=== PATIENT | male | born 1970 | race African-American/Black ===

== ENCOUNTER 2017-03-29 08:56 | Emergency (ER) | payer MEDICARE, OTHER ==
[~2017-03-29] VITALS: Ht 190.5 cm; Wt 80.0 kg
[~2017-03-29 08:56] MED LIST: AMLO-511 PO; ASPI-556 PO; CARV25 PO; CINA30 PO; FOLI1 PO; GUAIFCF5L PO; HYDR-3971 PO; PANT40TA PO; PROMVCC120 PO; SEVEC800 PO; SIMV-261 PO; VALS160T2 PO
[2017-03-29 09:17] LABS: GLUCOSE,POINT OF CARE 176 MG/DL (70-110)
[2017-03-29 09:48] LABS: CALCIUM, TOTAL 9.4 mg/dL (8.8-10.5); CREATININE 19.38 mg/dL (0.60-1.30); POTASSIUM 4.7 mmol/L (3.5-5.1)
[2017-03-29 10:35] VITALS: BP 168/99
== END 2017-03-29 11:02 | disposition home or self-care (01) ==
LOC: EMS 09:00
DX: E11.22 Type 2 diabetes mellitus with diabetic chronic kidney disease (principal); I12.0 Hypertensive chronic kidney disease with stage 5 chronic kidney disease or end stage renal disease; N18.6 End stage renal disease; M79.605 Pain in left leg; M79.604 Pain in right leg; J44.9 Chronic obstructive pulmonary disease, unspecified; G89.29 Other chronic pain; Z79.82 Long term (current) use of aspirin; Z99.2 Dependence on renal dialysis
CPT/HCPCS: 82962; 93005; 99285

== ENCOUNTER 2017-07-21 02:02 | Inpatient (IN) | payer MEDICARE, OTHER ==
[~2017-07-21] VITALS: Ht 190.5 cm; Wt 179.5 kg
[~2017-07-21 02:02] MED LIST changes: -AMLO-511 PO; -HYDR-3971 PO; -PROMVCC120 PO
[2017-07-21 02:44] LABS: BASOPHILS % (AUTO) 0.3 % (0.0-2.0); EOSINOPHILS % (AUTO) 2.2 % (1.0-6.0); HEMATOCRIT 28.9 % (41-53); HEMOGLOBIN 9.8 g/dL (13.5-17.5); LYMPHOCYTES # (AUTO) 0.9 K/uL (1.0-4.8); LYMPHOCYTES % (AUTO) 14.8 % (22.0-44.0); MEAN CORPUSCULAR HEMOGLOBIN 31.8 pg (26.0-34.0); MEAN CORPUSCULAR VOLUME 94 fL (80-100); MONOCYTES # (AUTO) 0.5 K/uL (0.1-1.0); MONOCYTES % (AUTO) 7.8 % (2.0-9.0); NEUTROPHILS # (AUTO) 4.6 K/uL (1.8-7.7); NEUTROPHILS % (AUTO) 74.9 % (40.0-70.0); PLATELET COUNT (AUTO) 217 K/uL (150-450); RED BLOOD CELL COUNT(AUTO) 3.09 MIL/uL (4.50-5.90); RED CELL DISTRIBUTION WIDTH 12.8 % (11.5-14.5)
[2017-07-21 03:08] LABS: ALBUMIN 3.9 g/dL (3.4-5.0); BILIRUBIN,TOTAL 0.5 mg/dL (0.1-1.0); CALCIUM, TOTAL 7.8 mg/dL (8.8-10.5); TOTAL PROTEIN, SERUM 7.4 g/dL (6.4-8.2)
[2017-07-21 03:20] LABS: CREATININE 17.42 mg/dL (0.60-1.30)
[2017-07-21] MEDS ORDERED: 0.9% SODIUM CHLORIDE 5 ML NEB SOLUTION NEB ONE (03:44)
[2017-07-21] MEDS ORDERED: 0.9% SODIUM CHLORIDE 10 ML SYRINGE IVP PRN ×2 (03:45→05:15)
[2017-07-21] MEDS ORDERED: ALBUTEROL SULFATE 5 MG/ML 20 ML NEB SOLN [BULK] NEB ONE (03:45)
[2017-07-21] MEDS ORDERED: CALCIUM CHLORIDE 100 MG/ML 10 ML SYRINGE IVP ONE (03:45)
[2017-07-21] MEDS ORDERED: INSULIN REGULAR, HUMAN 100 UNITS/ML IVP ONE (03:45)
[2017-07-21] MEDS ORDERED: ONDANSETRON HCL 4 MG/2 ML VIAL IVP PRN ×2 (03:45→05:15)
[2017-07-21] MEDS ORDERED: DEXTROSE 50%-WATER 25 GM/50 ML SYRINGE IVP ONE (03:45)
[2017-07-21] MEDS ORDERED: SODIUM BICARBONATE [ADULT] 8.4% 50 MEQ/50 ML SYRINGE IVP ONE ×2 (03:45→04:30)
[2017-07-21 04:26] LABS: CALCIUM, TOTAL 8.2 mg/dL (8.8-10.5); CREATININE 17.16 mg/dL (0.60-1.30)
[2017-07-21 04:32] LABS: POTASSIUM 8.9 mmol/L (3.5-5.1)
[2017-07-21 04:43] VITALS: BP 159/111
[2017-07-21] MEDS ORDERED: ALBUTEROL SULFATE 2.5 MG/0.5 ML NEB SOLUTION NEB PRN (05:15)
[2017-07-21] MEDS ORDERED: BISACODYL 10 MG RECTAL RECTAL SUPPOSITORY PR PRN (05:15)
[2017-07-21] MEDS ORDERED: IPRATROPIUM BROMIDE 0.5 MG/2.5 ML NEB SOLUTION NEB PRN (05:15)
[2017-07-21] MEDS ORDERED: GuaiFENesin/D-METHORPHAN/PHENYLEPH 5 ML LIQUID ORAL.SYG PO PRN (05:15)
[2017-07-21] MEDS ORDERED: ACETAMINOPHEN 325 MG TABLET PO PRN (05:15)
[2017-07-21] MEDS ORDERED: MAGNESIUM HYDROXIDE SUSPENSION 30 ML UDCUP PO PRN (05:15)
[2017-07-21] MEDS: HydrALAZINE HCL 20 MG/ML VIAL IVP PRN ×2 (05:16→10:15)
[2017-07-21 05:29] LABS: BASOPHILS # (AUTO) 0.03 K/uL (0.00-0.20); BASOPHILS % (AUTO) 0.4 % (0.0-2.0); EOSINOPHILS # (AUTO) 0.16 K/uL (0.00-0.70); EOSINOPHILS % (AUTO) 2.07 % (1.0-6.0); HEMATOCRIT 28.9 % (41-53); HEMOGLOBIN 9.8 g/dL (13.5-17.5); LYMPHOCYTES # (AUTO) 1.8 K/uL (1.0-4.8); LYMPHOCYTES % (AUTO) 23.3 % (22.0-44.0); MEAN CORPUSCULAR HEMOGLOBIN 31.9 pg (26.0-34.0); MEAN CORPUSCULAR HGB CONC 33.8 G/dL (31.0-37.0); MEAN CORPUSCULAR VOLUME 94 fL (80-100); MONOCYTES # (AUTO) 0.7 K/uL (0.1-1.0); MONOCYTES % (AUTO) 9.4 % (2.0-9.0); NEUTROPHILS % (AUTO) 64.8 % (40.0-70.0); PLATELET COUNT (AUTO) 246 K/uL (150-450); RED BLOOD CELL COUNT(AUTO) 3.06 MIL/uL (4.50-5.90); RED CELL DISTRIBUTION WIDTH 13.3 % (11.5-14.5)
[2017-07-21 05:44] LABS: ALBUMIN 3.8 g/dL (3.4-5.0); BILIRUBIN,TOTAL 0.6 mg/dL (0.1-1.0); CALCIUM, TOTAL 8.2 mg/dL (8.8-10.5); CREATININE 17.29 mg/dL (0.60-1.30); MAGNESIUM 3.2 mg/dL (1.80-2.40); TOTAL PROTEIN, SERUM 7.5 g/dL (6.4-8.2)
[2017-07-21 05:48] LABS: POTASSIUM 7.5 mmol/L (3.5-5.1)
[2017-07-21] MEDS ORDERED: SODIUM CHLORIDE 0.9% 2,000 ML IV ONE (05:55)
[2017-07-21 08:00] VITALS: BP 178/101
[2017-07-21] MEDS: SEVELAMER CARBONATE 800 MG TABLET PO SCH ×3 (10:04→18:08)
[2017-07-21] MEDS: CINACALCET HCL 30 MG TABLET PO SCH (10:05)
[2017-07-21] MEDS: ASPIRIN 81 MG EC TABLET PO SCH (10:05)
[2017-07-21] MEDS: FOLIC ACID 1 MG TABLET PO SCH (10:05)
[2017-07-21] MEDS: PANTOPRAZOLE SODIUM 40 MG DR TABLET PO SCH ×2 (10:06→20:00)
[2017-07-21] MEDS: HEPARIN SODIUM,PORCINE 5,000 UNITS/ML VIAL SQ SCH ×2 (10:06→20:02)
[2017-07-21] MEDS: CARVEDILOL 25 MG TABLET PO SCH ×2 (10:06→20:00)
[2017-07-21 11:28] LABS: CALCIUM, TOTAL 8.3 mg/dL (8.8-10.5); CREATININE 9.87 mg/dL (0.60-1.30); POTASSIUM 4.7 mmol/L (3.5-5.1)
[2017-07-21] MEDS: SIMVASTATIN 40 MG TABLET PO SCH (11:39)
[2017-07-21 12:00] VITALS: BP 141/79
[2017-07-21 14:38] VITALS: BP 143/89
[2017-07-21 15:34] LABS: GLUCOSE,POINT OF CARE 94 MG/DL (70-110)
[2017-07-21 19:26] VITALS: BP 143/86
[2017-07-21 23:30] VITALS: BP 149/79
[2017-07-22 05:43] VITALS: BP 140/74
[2017-07-22 06:25] LABS: CALCIUM, TOTAL 7.3 mg/dL (8.8-10.5); CREATININE 12.71 mg/dL (0.60-1.30); POTASSIUM 5.9 mmol/L (3.5-5.1)
[2017-07-22 07:04] LABS: BASOPHILS % (AUTO) 0.4 % (0.0-2.0); EOSINOPHILS % (AUTO) 2.9 % (1.0-6.0); HEMATOCRIT 27.9 % (41-53); HEMOGLOBIN 9.4 g/dL (13.5-17.5); LYMPHOCYTES # (AUTO) 1.2 K/uL (1.0-4.8); LYMPHOCYTES % (AUTO) 26.3 % (22.0-44.0); MEAN CORPUSCULAR HGB CONC 33.8 G/dL (31.0-37.0); MEAN CORPUSCULAR VOLUME 95 fL (80-100); MONOCYTES # (AUTO) 0.5 K/uL (0.1-1.0); MONOCYTES % (AUTO) 10.2 % (2.0-9.0); NEUTROPHILS # (AUTO) 2.8 K/uL (1.8-7.7); NEUTROPHILS % (AUTO) 60.2 % (40.0-70.0); PLATELET COUNT (AUTO) 199 K/uL (150-450); RED BLOOD CELL COUNT(AUTO) 2.94 MIL/uL (4.50-5.90)
[2017-07-22 07:50] VITALS: BP 142/79
[2017-07-22] MEDS: SEVELAMER CARBONATE 800 MG TABLET PO SCH ×2 (08:00→12:00)
[2017-07-22] MEDS: CINACALCET HCL 30 MG TABLET PO SCH (08:00)
[2017-07-22] MEDS: PANTOPRAZOLE SODIUM 40 MG DR TABLET PO SCH (09:00)
[2017-07-22] MEDS: CARVEDILOL 25 MG TABLET PO SCH (09:00)
[2017-07-22] MEDS: HEPARIN SODIUM,PORCINE 5,000 UNITS/ML VIAL SQ SCH (09:00)
[2017-07-22] MEDS: FOLIC ACID 1 MG TABLET PO SCH (09:00)
[2017-07-22] MEDS: ASPIRIN 81 MG EC TABLET PO SCH (09:00)
[2017-07-22] MEDS: SIMVASTATIN 40 MG TABLET PO SCH (09:00)
[2017-07-22] MEDS ORDERED: SODIUM CHLORIDE 0.9% 1,000 ML IV ONE (09:08)
[2017-07-22 12:08] VITALS: BP 179/97
== END 2017-07-22 17:50 | disposition home or self-care (01) | DRG 291 ==
LOC: EMS 02:04 → ICU 03:50 → 6N 13:57
PROVIDERS: ADMIT Internal Medicine; ATTEND Internal Medicine
DX: I13.2 Hypertensive heart and chronic kidney disease with heart failure and with stage 5 chronic kidney disease, or end stage renal disease (principal); I50.33 Acute on chronic diastolic (congestive) heart failure; E11.22 Type 2 diabetes mellitus with diabetic chronic kidney disease; N18.6 End stage renal disease; N25.81 Secondary hyperparathyroidism of renal origin; D63.1 Anemia in chronic kidney disease; E78.5 Hyperlipidemia, unspecified; E87.5 Hyperkalemia; I25.10 Atherosclerotic heart disease of native coronary artery without angina pectoris; J44.9 Chronic obstructive pulmonary disease, unspecified; Z59.0 Homelessness; Z87.891 Personal history of nicotine dependence; Z91.19 Patient's noncompliance with other medical treatment and regimen; Z99.2 Dependence on renal dialysis; K21.9 Gastro-esophageal reflux disease without esophagitis
CPT/HCPCS: 82962; 83735; 87081; 87340; 90935; 93005; 93306; 94640; 96374; 96375; 99291; J0360; J1644; J1815; J3490; J7030

== ENCOUNTER 2017-09-17 17:59 | Inpatient (IN) | payer MEDICARE, OTHER ==
[~2017-09-17] VITALS: Ht 190.5 cm; Wt 87.3 kg
[~2017-09-17 17:59] MED LIST changes: -GUAIFCF5L PO; -VALS160T2 PO
[2017-09-17] MEDS ORDERED: IPRATROPIUM BROMIDE 0.5 MG/2.5 ML NEB SOLUTION NEB ONE (23:45)
[2017-09-17] MEDS ORDERED: ALBUTEROL SULFATE 2.5 MG/0.5 ML NEB SOLUTION NEB ONE (23:45)
[2017-09-17 23:57] LABS: GLUCOSE,POINT OF CARE 144 MG/DL (70-110)
[2017-09-18] VITALS (7 sets, daily range): BP systolic 119–164; BP diastolic 72–98
[2017-09-18] LABS: BASOPHILS % (AUTO) 0.4 % (0.0-2.0); HEMATOCRIT 32.3 % (41-53); HEMOGLOBIN 10.8 g/dL (13.5-17.5); LYMPHOCYTES # (AUTO) 0.9 K/uL (1.0-4.8); LYMPHOCYTES % (AUTO) 11.3 % (22.0-44.0); MEAN CORPUSCULAR HEMOGLOBIN 31.8 pg (26.0-34.0); MEAN CORPUSCULAR HGB CONC 33.5 G/dL (31.0-37.0); MEAN CORPUSCULAR VOLUME 95 fL (80-100); MONOCYTES # (AUTO) 1.3 K/uL (0.1-1.0); MONOCYTES % (AUTO) 16.2 % (2.0-9.0); NEUTROPHILS # (AUTO) 5.5 K/uL (1.8-7.7); NEUTROPHILS % (AUTO) 71.1 % (40.0-70.0); PLATELET COUNT (AUTO) 229 K/uL (150-450); RED CELL DISTRIBUTION WIDTH 15.3 % (11.5-14.5)
[2017-09-18 00:17] LABS: INR 1.1 (0.9-1.1); PROTHROMBIN TIME 11.8 SEC (9.4-11.6)
[2017-09-18 00:23] LABS: LACTIC ACID 2.1 mmol/L (0.4-2.0)
[2017-09-18 00:39] LABS: ALBUMIN 3.7 g/dL (3.4-5.0); BILIRUBIN,TOTAL 0.5 mg/dL (0.1-1.0); CALCIUM, TOTAL 8.7 mg/dL (8.8-10.5); CKMB RELATIVE INDEX 3.1 % (0.0-4.0); CREATINE KINASE MB 6.6 ng/mL (0-5); CREATININE 19.82 mg/dL (0.60-1.30); TOTAL PROTEIN, SERUM 8.1 g/dL (6.4-8.2)
[2017-09-18 01:06] LABS: INFLUENZA TYPE A NEGATIVE FOR TYPE A (NEGATIVE); INFLUENZA TYPE B NEGATIVE FOR TYPE B (NEGATIVE)
[2017-09-18] MEDS ORDERED: 0.9% SODIUM CHLORIDE 10 ML SYRINGE IVP PRN ×2 (01:45→19:45)
[2017-09-18] MEDS ORDERED: ONDANSETRON HCL 4 MG/2 ML VIAL IVP PRN (01:45)
[2017-09-18] MEDS ORDERED: ACETAMINOPHEN 325 MG TABLET PO PRN ×2 (01:45→19:45)
[2017-09-18] MEDS: ALBUTEROL SULFATE 2.5 MG/0.5 ML NEB SOLUTION NEB SCH ×2 (03:19→11:22)
[2017-09-18] MEDS: IPRATROPIUM BROMIDE 0.5 MG/2.5 ML NEB SOLUTION NEB SCH ×2 (03:19→11:22)
[2017-09-18] MEDS: OxyCODONE HCL/ACETAMINOPHEN 5-325 MG TABLET PO PRN ×3 (06:10→21:08)
[2017-09-18 07:02] LABS: GLUCOSE,POINT OF CARE 95 MG/DL (70-110)
[2017-09-18] MEDS ORDERED: 0.9% SODIUM CHLORIDE 5 ML NEB SOLUTION NEB ONE (11:13)
[2017-09-18 11:33] LABS: GLUCOSE,POINT OF CARE 134 MG/DL (70-110)
[2017-09-18] MEDS ORDERED: SODIUM CHLORIDE 0.9% 2,000 ML IV ONE (12:56)
[2017-09-18] MEDS: VITAMIN B COMP/VIT C/FOLIC ACID CAPSULE PO SCH (17:57)
[2017-09-18] MEDS: AmLODIPine BESYLATE 5 MG TABLET PO SCH (17:57)
[2017-09-18] MEDS ORDERED: SEVELAMER CARBONATE 800 MG TABLET PO SCH (18:00)
[2017-09-18] MEDS ORDERED: MAGNESIUM HYDROXIDE SUSPENSION 30 ML UDCUP PO PRN (19:45)
[2017-09-18] MEDS: SIMVASTATIN 40 MG TABLET PO SCH (20:36)
[2017-09-18] MEDS: ASPIRIN 81 MG EC TABLET PO SCH (20:36)
[2017-09-18] MEDS: FOLIC ACID 1 MG TABLET PO SCH (20:36)
[2017-09-18] MEDS: DOCUSATE SODIUM 100 MG CAPSULE PO SCH (20:36)
[2017-09-18] MEDS: PANTOPRAZOLE SODIUM 40 MG/VIAL IVP SCH (20:37)
[2017-09-18] MEDS: CARVEDILOL 25 MG TABLET PO SCH (21:08)
[2017-09-18] MEDS ORDERED: ALBUTEROL SULFATE 2.5 MG/0.5 ML NEB SOLUTION NEB PRN (23:15)
[2017-09-18] MEDS ORDERED: IPRATROPIUM BROMIDE 0.5 MG/2.5 ML NEB SOLUTION NEB PRN (23:15)
[2017-09-18] MEDS: TEMAZEPAM 15 MG CAPSULE PO PRN (23:25)
[2017-09-19 04:13] VITALS: BP 143/72
[2017-09-19 07:00] VITALS: BP 140/66
[2017-09-19 07:36] LABS: CALCIUM, TOTAL 8.4 mg/dL (8.8-10.5); CREATININE 14.2 mg/dL (0.60-1.30); MAGNESIUM 2.3 mg/dL (1.80-2.40); POTASSIUM 4.4 mmol/L (3.5-5.1)
[2017-09-19 07:45] LABS: HEMATOCRIT 30.9 % (41-53); HEMOGLOBIN 10.4 g/dL (13.5-17.5); MEAN CORPUSCULAR HEMOGLOBIN 31.9 pg (26.0-34.0); MEAN CORPUSCULAR HGB CONC 33.8 G/dL (31.0-37.0); MEAN CORPUSCULAR VOLUME 94 fL (80-100); PLATELET COUNT (AUTO) 175 K/uL (150-450); RED BLOOD CELL COUNT(AUTO) 3.27 MIL/uL (4.50-5.90); RED CELL DISTRIBUTION WIDTH 15.6 % (11.5-14.5)
[2017-09-19] MEDS: CINACALCET HCL 30 MG TABLET PO SCH (08:00)
[2017-09-19] MEDS: SEVELAMER CARBONATE 800 MG TABLET PO SCH ×3 (08:00→18:19)
[2017-09-19] MEDS: CARVEDILOL 25 MG TABLET PO SCH ×2 (09:00→19:48)
[2017-09-19] MEDS: DOCUSATE SODIUM 100 MG CAPSULE PO SCH ×2 (09:00→19:48)
[2017-09-19] MEDS ORDERED: SODIUM CHLORIDE 0.9% 2,000 ML IV ONE (09:29)
[2017-09-19 10:50] VITALS: BP 135/80
[2017-09-19 11:07] LABS: BAND NEUTROPHILS % (MANUAL) 8 % (1-5); EOSINOPHILS % (MANUAL) 1 % (1-6); LYMPHOCYTES % (MANUAL) 39 % (22-44); MONOCYTES % (MANUAL) 2 % (2-9); SEGMENTED NEUTROPHILS % 50 % (40-70)
[2017-09-19] MEDS ORDERED: SODIUM CHLORIDE 0.9% 100 ML ONE (12:14)
[2017-09-19] MEDS: PANTOPRAZOLE SODIUM 40 MG/VIAL IVP SCH (14:26)
[2017-09-19] MEDS: FOLIC ACID 1 MG TABLET PO SCH (14:27)
[2017-09-19] MEDS: ASPIRIN 81 MG EC TABLET PO SCH (14:27)
[2017-09-19] MEDS: SIMVASTATIN 40 MG TABLET PO SCH (14:27)
[2017-09-19] MEDS: AmLODIPine BESYLATE 5 MG TABLET PO SCH (14:28)
[2017-09-19] MEDS: VITAMIN B COMP/VIT C/FOLIC ACID CAPSULE PO SCH (14:31)
[2017-09-19 14:44] VITALS: BP 157/81
[2017-09-19] MEDS: CeFAZolin 2 GM/DEXTROSE 50 ML IV SCH (15:42)
[2017-09-19] MEDS: OxyCODONE HCL/ACETAMINOPHEN 5-325 MG TABLET PO PRN (15:48)
[2017-09-19 19:15] VITALS: BP 148/88
[2017-09-19 23:53] VITALS: BP 149/71
[2017-09-20] VITALS (7 sets, daily range): BP systolic 124–143; BP diastolic 71–88
[2017-09-20] MEDS: TEMAZEPAM 15 MG CAPSULE PO PRN ×2 (00:41→23:21)
[2017-09-20 07:58] LABS: BASOPHILS # (AUTO) 0.02 K/uL (0.00-0.20); BASOPHILS % (AUTO) 0.4 % (0.0-2.0); EOSINOPHILS # (AUTO) 0.13 K/uL (0.00-0.70); EOSINOPHILS % (AUTO) 2.68 % (1.0-6.0); HEMATOCRIT 33.1 % (41-53); HEMOGLOBIN 10.8 g/dL (13.5-17.5); LYMPHOCYTES % (AUTO) 20.4 % (22.0-44.0); MEAN CORPUSCULAR HEMOGLOBIN 31.5 pg (26.0-34.0); MEAN CORPUSCULAR HGB CONC 32.5 G/dL (31.0-37.0); MEAN CORPUSCULAR VOLUME 97 fL (80-100); MONOCYTES # (AUTO) 0.9 K/uL (0.1-1.0); NEUTROPHILS # (AUTO) 2.9 K/uL (1.8-7.7); NEUTROPHILS % (AUTO) 58.5 % (40.0-70.0); PLATELET COUNT (AUTO) 181 K/uL (150-450); RED BLOOD CELL COUNT(AUTO) 3.42 MIL/uL (4.50-5.90)
[2017-09-20] MEDS: SEVELAMER CARBONATE 800 MG TABLET PO SCH ×3 (08:00→17:33)
[2017-09-20] MEDS: CINACALCET HCL 30 MG TABLET PO SCH (08:00)
[2017-09-20] MEDS: DOCUSATE SODIUM 100 MG CAPSULE PO SCH ×2 (08:28→21:13)
[2017-09-20] MEDS: PANTOPRAZOLE SODIUM 40 MG/VIAL IVP SCH (08:29)
[2017-09-20 08:45] LABS: CALCIUM, TOTAL 8.5 mg/dL (8.8-10.5); CREATININE 12.86 mg/dL (0.60-1.30); POTASSIUM 4.5 mmol/L (3.5-5.1)
[2017-09-20] MEDS: VITAMIN B COMP/VIT C/FOLIC ACID CAPSULE PO SCH ×2 (09:00→15:09)
[2017-09-20] MEDS: SIMVASTATIN 40 MG TABLET PO SCH ×2 (09:00→15:09)
[2017-09-20] MEDS: FOLIC ACID 1 MG TABLET PO SCH ×2 (09:00→15:09)
[2017-09-20] MEDS: AmLODIPine BESYLATE 5 MG TABLET PO SCH ×2 (09:00→15:09)
[2017-09-20] MEDS: CARVEDILOL 25 MG TABLET PO SCH ×3 (09:00→21:13)
[2017-09-20] MEDS: ASPIRIN 81 MG EC TABLET PO SCH (09:20)
[2017-09-20] MEDS: OxyCODONE HCL/ACETAMINOPHEN 5-325 MG TABLET PO PRN ×2 (12:26→21:18)
[2017-09-20] MEDS: GuaiFENesin/CODEINE [SUGAR FREE] 200-20MG/10 ML SYRUP UDCUP PO PRN (17:33)
[2017-09-21] VITALS (9 sets, daily range): BP systolic 118–139; BP diastolic 68–81
[2017-09-21] MEDS: OxyCODONE HCL/ACETAMINOPHEN 5-325 MG TABLET PO PRN ×4 (01:20→22:11)
[2017-09-21] MEDS: ONDANSETRON HCL 4 MG/2 ML VIAL IVP PRN (03:03)
[2017-09-21] MEDS: GuaiFENesin/CODEINE [SUGAR FREE] 200-20MG/10 ML SYRUP UDCUP PO PRN ×2 (04:46→18:34)
[2017-09-21] MEDS: CINACALCET HCL 30 MG TABLET PO SCH ×2 (08:21→13:17)
[2017-09-21] MEDS: SEVELAMER CARBONATE 800 MG TABLET PO SCH ×3 (08:21→18:29)
[2017-09-21] MEDS: VITAMIN B COMP/VIT C/FOLIC ACID CAPSULE PO SCH (08:21)
[2017-09-21] MEDS: DOCUSATE SODIUM 100 MG CAPSULE PO SCH ×2 (08:21→20:13)
[2017-09-21] MEDS: FOLIC ACID 1 MG TABLET PO SCH (08:21)
[2017-09-21] MEDS: ASPIRIN 81 MG EC TABLET PO SCH (08:22)
[2017-09-21] MEDS: SIMVASTATIN 40 MG TABLET PO SCH (08:22)
[2017-09-21] MEDS: PANTOPRAZOLE SODIUM 40 MG/VIAL IVP SCH (08:26)
[2017-09-21] MEDS: CeFAZolin 2 GM/DEXTROSE 50 ML IV SCH (13:16)
[2017-09-21] MEDS: AmLODIPine BESYLATE 5 MG TABLET PO SCH (13:16)
[2017-09-21] MEDS: CARVEDILOL 25 MG TABLET PO SCH ×2 (13:17→20:13)
[2017-09-22] MEDS: TEMAZEPAM 15 MG CAPSULE PO PRN ×2 (01:59→22:35)
[2017-09-22] MEDS: GuaiFENesin/CODEINE [SUGAR FREE] 200-20MG/10 ML SYRUP UDCUP PO PRN (01:59)
[2017-09-22 05:01] VITALS: BP 117/76
[2017-09-22] MEDS: SIMVASTATIN 40 MG TABLET PO SCH (08:37)
[2017-09-22] MEDS: CARVEDILOL 25 MG TABLET PO SCH ×2 (08:37→21:04)
[2017-09-22] MEDS: PANTOPRAZOLE SODIUM 40 MG/VIAL IVP SCH (08:37)
[2017-09-22] MEDS: FOLIC ACID 1 MG TABLET PO SCH (08:37)
[2017-09-22] MEDS: DOCUSATE SODIUM 100 MG CAPSULE PO SCH ×2 (08:37→21:04)
[2017-09-22] MEDS: AmLODIPine BESYLATE 5 MG TABLET PO SCH (08:37)
[2017-09-22] MEDS: VITAMIN B COMP/VIT C/FOLIC ACID CAPSULE PO SCH (08:37)
[2017-09-22] MEDS: ASPIRIN 81 MG EC TABLET PO SCH (08:37)
[2017-09-22] MEDS: CINACALCET HCL 30 MG TABLET PO SCH (08:38)
[2017-09-22] MEDS: SEVELAMER CARBONATE 800 MG TABLET PO SCH ×3 (08:38→18:07)
[2017-09-22] MEDS: ONDANSETRON HCL 4 MG/2 ML VIAL IVP PRN (13:23)
[2017-09-22 16:42] VITALS: BP 146/83
[2017-09-22] MEDS: OxyCODONE HCL/ACETAMINOPHEN 5-325 MG TABLET PO PRN ×3 (18:15→22:23)
[2017-09-22 20:13] VITALS: BP 142/85
[2017-09-23 00:18] VITALS: BP 137/80
[2017-09-23] MEDS: OxyCODONE HCL/ACETAMINOPHEN 5-325 MG TABLET PO PRN ×2 (03:34→11:58)
[2017-09-23] MEDS ORDERED: SODIUM CHLORIDE 0.9% 2,000 ML IV ONE (07:26)
[2017-09-23] MEDS: SEVELAMER CARBONATE 800 MG TABLET PO SCH ×4 (08:00→18:00)
[2017-09-23] MEDS: VITAMIN B COMP/VIT C/FOLIC ACID CAPSULE PO SCH (11:28)
[2017-09-23] MEDS: FOLIC ACID 1 MG TABLET PO SCH (11:28)
[2017-09-23] MEDS: SIMVASTATIN 40 MG TABLET PO SCH (11:29)
[2017-09-23] MEDS: ASPIRIN 81 MG EC TABLET PO SCH (11:29)
[2017-09-23] MEDS: AmLODIPine BESYLATE 5 MG TABLET PO SCH (11:29)
[2017-09-23] MEDS: PANTOPRAZOLE SODIUM 40 MG/VIAL IVP SCH (11:29)
[2017-09-23] MEDS: CARVEDILOL 25 MG TABLET PO SCH (11:29)
[2017-09-23] MEDS: DOCUSATE SODIUM 100 MG CAPSULE PO SCH (11:30)
[2017-09-23] MEDS: CINACALCET HCL 30 MG TABLET PO SCH (11:30)
[2017-09-23 15:40] VITALS: BP 124/71
[2017-09-23] MEDS ORDERED: SODIUM CHLORIDE 0.9% 500 ML IV ONE (15:58)
[2017-09-23] MEDS: CeFAZolin 2 GM/DEXTROSE 50 ML IV SCH (16:06)
[2017-09-23] MEDS ORDERED: FOLI1CAP2 PO (17:52)
[2017-09-23] MEDS ORDERED: AMLO-512 PO (17:53)
[2017-09-23] MEDS ORDERED: PERCT PO (17:53)
== END 2017-09-23 19:10 | disposition home or self-care (01) | DRG 70 ==
LOC: EMS 18:00 → AHU 09-18 01:39 → 5S 09-18 12:01 → 6N 09-21 16:00
PROVIDERS: ADMIT Internal Medicine; ATTEND Internal Medicine
DX: G93.41 Metabolic encephalopathy (principal); N18.6 End stage renal disease; I13.2 Hypertensive heart and chronic kidney disease with heart failure and with stage 5 chronic kidney disease, or end stage renal disease; E11.22 Type 2 diabetes mellitus with diabetic chronic kidney disease; E83.39 Other disorders of phosphorus metabolism; J44.1 Chronic obstructive pulmonary disease with (acute) exacerbation; N25.81 Secondary hyperparathyroidism of renal origin; I49.9 Cardiac arrhythmia, unspecified; D64.9 Anemia, unspecified; E78.00 Pure hypercholesterolemia, unspecified; I50.9 Heart failure, unspecified; Z79.82 Long term (current) use of aspirin; Z79.899 Other long term (current) drug therapy; Z82.49 Family history of ischemic heart disease and other diseases of the circulatory system; Z91.15 Patient's noncompliance with renal dialysis; Z99.2 Dependence on renal dialysis; F19.10 Other psychoactive substance abuse, uncomplicated; E87.70 Fluid overload, unspecified
CPT/HCPCS: 82962; 83036; 83605; 83735; 84100; 87040; 87340; 87804; 90935; 93005; 94640; 99285; C9113; J0690; J2405; J7030; J7040; J7050

== ENCOUNTER 2019-05-17 02:24 | Emergency (ER) | payer MEDICARE, OTHER ==
[~2019-05-17] VITALS: Ht 190.5 cm; Wt 86.0 kg
[~2019-05-17 02:24] MED LIST changes: +ACET650S14 PO; +ALPR0.5T8 PO; +BUPR150SR PO; +DSS100 PO; +EPOE10I SQ; +FAMO20 PO; +FOLI1CAP2 PO; +HYDR-4061 PO; +INSU100V SQ; +MIRT15 PO; -PANT40TA PO; +SEVE800T17 PO; -SEVEC800 PO; -SIMV-261 PO
[2019-05-17 02:34] VITALS: BP 180/100
[2019-05-17] MEDS ORDERED: ONDANSETRON HCL 4 MG/2 ML VIAL IVP ONE (02:45)
[2019-05-17 03:01] LABS: GLUCOSE,POINT OF CARE 75 MG/DL (70-110)
[2019-05-17 03:10] LABS: EOSINOPHILS % (AUTO) 2.4 % (1.0-6.0); HEMATOCRIT 33.2 % (41-53); HEMOGLOBIN 10.6 g/dL (13.5-17.5); LYMPHOCYTES # (AUTO) 1.1 K/uL (1.0-4.8); LYMPHOCYTES % (AUTO) 21.4 % (22.0-44.0); MEAN CORPUSCULAR HEMOGLOBIN 31.4 pg (26.0-34.0); MEAN CORPUSCULAR VOLUME 98 fL (80-100); MONOCYTES # (AUTO) 0.3 K/uL (0.1-1.0); MONOCYTES % (AUTO) 6.8 % (2.0-9.0); NEUTROPHILS # (AUTO) 3.4 K/uL (1.8-7.7); NEUTROPHILS % (AUTO) 68.4 % (40.0-70.0); PLATELET COUNT (AUTO) 197 K/uL (150-450); RED BLOOD CELL COUNT(AUTO) 3.39 MIL/uL (4.50-5.90); RED CELL DISTRIBUTION WIDTH 15.4 % (11.5-14.5)
[2019-05-17 03:20] LABS: PROTHROMBIN TIME 10.7 SEC (9.4-11.6)
[2019-05-17 03:22] LABS: CALCIUM, TOTAL 9.9 mg/dL (8.8-10.5); POTASSIUM 5.1 mmol/L (3.5-5.1)
[2019-05-17 03:24] LABS: CREATININE 19.15 mg/dL (0.60-1.30)
[2019-05-17 03:25] LABS: ALBUMIN 3.8 g/dL (3.4-5.0); BILIRUBIN,TOTAL 0.6 mg/dL (0.1-1.0); TOTAL PROTEIN, SERUM 7.9 g/dL (6.4-8.2)
[2019-05-17] MEDS ORDERED: CARVEDILOL 3.125 MG TABLET PO ONE ×2 (03:30)
== END 2019-05-17 05:11 | disposition left against medical advice (07) ==
LOC: EMS 02:25
DX: R07.89 Other chest pain (principal); R06.02 Shortness of breath; I10 Essential (primary) hypertension; E11.9 Type 2 diabetes mellitus without complications; J44.9 Chronic obstructive pulmonary disease, unspecified; F17.210 Nicotine dependence, cigarettes, uncomplicated; Z79.82 Long term (current) use of aspirin; Z79.899 Other long term (current) drug therapy
CPT/HCPCS: 36415; 71046; 80053; 82962; 84484; 85025; 85610; 85730; 93005; 99284; 99406; J2405